=== PATIENT | male | born 1980 | race Caucasian/White ===

== ENCOUNTER → 2017-02-27 | Outpatient (CLI) | payer OTHER ==
[~2017-02-27] MED LIST: ALBINS INH; CETI10TA84 PO; LEVAAER2 INH; LOSA50TA54 PO; MOME200A INH; MULTTAB5 PO
[2017-02-27 13:12] LABS: THYROID STIMULATING HORMONE 1.44 uIu/ml (0.300-4.500)
== END | disposition home or self-care (01) ==
LOC: C.LABBFT 07:36
PROVIDERS: ATTEND Internal Medicine Endocrinology, Diabetes & Metabolism
DX: E29.1 Testicular hypofunction (principal); E03.9 Hypothyroidism, unspecified